=== PATIENT | male | born 1970 | race Caucasian/White ===

== ENCOUNTER 2019-10-23 15:32 | Emergency (ER) | payer BC, SELFPAY ==
--- NOTE | ~2019-10-23 | XR_ITS ---
EXAMINATION: XR chest 2V DATE: 10/23/2019 16:03 INDICATION: Right chest pain. TECHNIQUE: Frontal and lateral views of the chest were obtained. COMPARISON: Chest 2 views 02/21/2017, CT abdomen and pelvis 01/19/2015 FINDINGS: The lungs are hyperexpanded. There is mild scarring at the lung apices. No pleural effusion or pneumothorax. The heart size is normal. IMPRESSION: 1. Mild scarring at the lung apices. 2. Hyperexpanded lungs, consistent with chronic obstructive pulmonary disease. Reviewed, dictated and finalized at location A.
--- NOTE | 2019-10-23 15:38 | ED.BACK ---
HPI - Back Pain/Injury General Chief Complaint: Back Pain/Injury Stated Complaint: back pain Time Seen by Provider: 10/23/19 15:50 Source: patient and RN notes reviewed Mode of arrival: ambulatory Limitations: no limitations History of Present Illness HPI Narrative: 49 old male presents with concern of approximately 10-day history of right mid upper back pain. Denies any injury, trauma, repetitive activities or work. Denies any cough, shortness of breath, fever. Denies chest pain. Denies urine frequency, urgency, hematuria. Denies abdominal pain, nausea, vomiting, diarrhea. Denies any weakness or numbness in any extremity, denies perianal anesthesia or loss of bowel or bladder function. Reports pain relief with bending forward, reports pain exacerbated with certain movements such as twisting. Patient reports history of cigarette smoking, reports he currently vapes. MD elicited complaint: back pain Related Data Home Medications Medication Instructions Recorded Confirmed aripiprazole mg 10/23/19 aripiprazole mg 10/23/19 bupropion HCl mg PO 10/23/19 escitalopram oxalate mg 10/23/19 methylphenidate HCl 10/23/19 tadalafil [Cialis] mg 10/23/19 Allergies Allergy/AdvReac Type Severity Reaction Status Date / Time pollen extracts Allergy Mild Verified 02/21/17 18:30 Review of Systems Review of Systems: Narrative: CONSTITUTIONAL: Denies malaise, chills, sweats, or fever. EYES: Denies visual changes, redness, or discharge. ENT: Denies rhinorrhea, congestion, sinus pain, otalgia or sore throat. CARDIOVASCULAR: Denies chest pain, palpitations, or edema. RESPIRATORY: Denies cough or dyspnea. GASTROINTESTINAL: Denies abdominal pain, nausea, vomiting, diarrhea. Denies loss of bowel function GENITOURINARY: Denies dysuria or hematuria. Denies loss of bladder function SKIN: Denies bruising, redness MUSCULOSKELETAL: Reports right mid to upper back pain. Denies joint pain, or myalgia. NEUROLOGIC: Denies numbness, weakness, or headache. Denies perianal anesthesia All systems reviewed & are unremarkable except as noted in HPI and below PMFSH Social History Social History Smoking status: Smoker, status unknown Alcohol intake: never Comments At time of signature, agree with nursing past medical, surgical, social and family history. There is no relevant family history pertinent to the presenting complaint Exam Narrative: Exam Narrative: GENERAL: Well-appearing, well-nourished, and in no acute distress. HEAD: Normocephalic, atraumatic. EYES: PERRLA and EOMI. NECK: Supple. No lymphadenopathy. CHEST: Clear to auscultation. No respiratory distress. HEART: Regular rate and rhythm. Distal pulses palpable and equal, cap refill <3 seconds ABDOMEN: Soft, nontender, nondistended, normal active bowel sounds, no palpable or pulsatile masses. No CVA tenderness MUSCULOSKELETAL: Normal range of motion and strength in all extremities; 5/5 strength with hip flexion and extension, dorsiflexion and extension, knee flexion and extension, plantar flexion and extension. Normal sensation in dermatomal distributions with sensitivity to light touch and pain. No midline back tenderness to palpation. No paraspinal tenderness. Transfers from lying to sitting to standing. SKIN: Warm, dry, no rash. No ecchymosis, erythema, open wounds to back. NEURO: No focal deficits. Alert and oriented x3. Reflexes intact. Normal gait. PSYCH: Normal mood and affect Course Course Emergency Course: Patient is aware of diagnosis, understands and agrees to treatment plan. Anticipatory guidance given. Patient agrees to follow-up as directed and is aware of reasons to seek care at the emergency department. Portions of this record may have been created with voice recognition software Vital Signs Vital signs: Reviewed. MDM - Back Pain/Injury MDM Narrative Medical decision making narrative: No risk factors or findings concerning for epidural abscess, diskitis, verteb
[2019-10-23 15:45] VITALS: BP 106/76; PULSE 76; RESP 16; TEMP 36.8; O2SAT 97
== END 2019-10-23 16:23 | disposition home or self-care (01) ==
PROVIDERS: Emergency Provider Nurse Practitioner
DX: M54.9 Dorsalgia, unspecified (principal); F17.290 Nicotine dependence, other tobacco product, uncomplicated
CPT/HCPCS: 71046; 99213; G0463

== ENCOUNTER 2021-01-27 18:17 | Emergency (ER) | payer OTHER, SELFPAY ==
[2021-01-27 18:28] VITALS: BP 107/66; PULSE 60; RESP 18; TEMP 36.2; O2SAT 99
--- NOTE | 2021-01-27 18:48 | ED.SKABFB ---
HPI - Skin/Abscess/Foreign Bdy General Chief complaint: Skin/Abscess/Foreign Body Stated complaint: Rash on back Time Seen by Provider: 01/27/21 18:48 Source: patient Mode of arrival: ambulatory Limitations: no limitations History of Present Illness HPI narrative: Terence Bearden is a 50 yo male with depression, ADHD, who comes to [facility] with what appears to be acne on his back with a central lesion that is tender with pressure and pain, looks like it has been scabbed and draining, denies fever denies contact dermatitis are coming in contact with anything that would cause those lesions, has not had acne Related Data Home Medications Medication Instructions Recorded Confirmed aripiprazole 5 mg PO DAILY 10/23/19 01/27/21 aripiprazole 15 mg PO DAILY 10/23/19 01/27/21 bupropion HCl 300 mg PO DAILY 10/23/19 01/27/21 methylphenidate HCl 20 mg PO DAILY 10/23/19 01/27/21 tadalafil [Cialis] 5 mg PO PRN PRN 10/23/19 escitalopram oxalate 10 mg PO DAILY 01/27/21 01/27/21 escitalopram oxalate 20 mg PO DAILY 01/27/21 01/27/21 sildenafil 50 mg PO DAILY 01/27/21 01/27/21 Allergies Allergy/AdvReac Type Severity Reaction Status Date / Time pollen extracts Allergy Mild Hives Verified 01/27/21 18:32 Review of Systems Review of Systems: CONSTITUTIONAL: Denies fever, chills, sweats. EYES: Denies visual changes, redness, discharge. ENT: Denies rhinorrhea, congestion, sore throat, otalgia. CARDIOVASCULAR: Denies chest pain, palpitations, edema. RESPIRATORY: Denies dyspnea, wheezing, cough GASTROINTESTINAL: Denies abdominal pain, nausea, vomiting, diarrhea. GENITOURINARY: Denies dysuria, hematuria, abnormal discharge SKIN: Denies rash or itching. Lesions on back with such one being tender NEUROLOGIC: Denies numbness, or focal weakness. PSYCHIATRIC: Denies anxiety or depression. [facility] Past Medical History Medical History ADHD Family History Family History (Updated 01/27/21 @ 18:59 by Fabiola Camacho CNP) Father Hypertension Other High cholesterol Social History Social History (Updated 01/27/21 @ 18:59 by Fabiola Camacho CNP) Smoking status: Current every day smoker Tobacco type: e-cigarettes/vaping Alcohol intake: never Comments At time of signature, I agree with nursing past medical, surgical, social and family history. There is no relevant family history pertinent to the presenting complaint. Exam Narrative: GENERAL: This is a well-nourished, well-developed patient, in mild distress. HEAD: normocephalic, atraumatic. EYES: . Sclera clear/white. Vision is grossly intact. EARS: External ears normal, . Hearing grossly intact. NOSE: External nose normal without nasal discharge, nares without redness, no rhinorrhea. THROAT: Mucous membranes moist, NECK: Neck supple, CARDIOVASCULAR: Regular rate and rhythm without murmurs, gallops, or rubs. RESPIRATORY: Clear to auscultation. Breath sounds equal bilaterally. No wheezes, rales, or rhonchi. GASTROINTESTINAL: Abdomen soft, SKIN: warm, intact with lesions on back that are small almost acne like except for central lesion on upper lumbar area that is 1 x 3 and dimension that is scabbed and tender. NEURO: awake, alert, and oriented to person, place and time. There were no obvious focal neurologic abnormalities. Steady gait EXTREMITIES: Normal range of motion. BACK: Nontender without deformity Course Course Emergency Course: Patient comes with appears to be a rash in his back what is more acne-like in appearance Central lesion is tender and has been draining started on Keflex; follow up with pcp Vital Signs Vital signs: Vital Signs Temperature 97.1 F L 01/27/21 18:28 Pulse Rate 60 01/27/21 18:28 Respiratory Rate 18 01/27/21 18:28 Blood Pressure 107/66 01/27/21 18:28 Pulse Oximetry 99 01/27/21 18:28 Temperature 97.1 F L 01/27/21 18:28 Pulse Rate 60 01/27/21 18:28 Respirato
== END 2021-01-27 19:10 | disposition home or self-care (01) ==
PROVIDERS: Emergency Provider Nurse Practitioner; PCP Internal Medicine
DX: L03.312 Cellulitis of back [any part except buttock and flank] (principal); F17.290 Nicotine dependence, other tobacco product, uncomplicated
CPT/HCPCS: 99213; G0463